=== PATIENT | male | born 1960 | race Caucasian/White ===

== ENCOUNTER 2016-10-07 21:47 | Emergency (ER) | payer OTHER ==
[2016-10-07 21:54] VITALS: RESP 16; TEMP 97.5
[2016-10-07] MEDS ORDERED: fentaNYL 100 MCG/2 ML INJ IVP ONE (22:27)
[2016-10-07] MEDS ORDERED: KETOROLAC 15 MG/1 ML SDV IVP ONE (22:37)
--- NOTE | 2016-10-07 22:42 | EDPHY ---
H & P Stated Complaint: felt a pop in bicep while pulling on heavy object HPI/ROS: HPI The patient presents with left-sided elbow pain which began at about 9 o'clock tonight when he was lifting pieces of wood into a truck. He felt a pop and immediate pain of his left elbow near the biceps tendon. This is been constant , getting progressively worse, and is severe. It is described as an achy pain. He cannot move his arm because the pain is so severe. He has no prior history of any injuries of the left arm.. REVIEW OF SYSTEMS Constitutional: No fever, no chills. Musculoskeletal: No back pain. Skin: No rashes. Neurological: No headache. PMHx: Hypothyroidism, depression PHYSICAL General Appearance: In obvious discomfort, clutching his elbow Eyes: Pupils equal and round no pallor or injection ENT, Mouth: Mucous membranes moist Respiratory: Breathing comfortably Neurological: A&O, moves all extremities Skin: Warm and dry, no rashes Musculoskeletal: Left elbow is held in flexion, there is tenderness overlying the distal head of the biceps tendon which appears retracted, he has limited flexion secondary to pain Extremities: symmetrical, full range of motion Psychiatric: Patient is oriented X 3, there is no agitation Source: Patient Exam Limitations: No limitations - Personal History Tetanus Vaccine Date: < 10 - Medical/Surgical History Hx Asthma: Yes Hx Chronic Respiratory Disease: No Hx Diabetes: No Hx Cardiac Disease: No Hx Renal Disease: No Hx Cirrhosis: No Hx Alcoholism: No Hx HIV/AIDS: No Hx Splenectomy or Spleen Trauma: No Other PMH: HYPOTHYROID, DEPRESSION, idosyncratic insomnia - Social History Smoking Status: Never smoked Constitutional: Initial Vital Signs Temperature (C) 36.4 C 10/07/16 21:52 Heart Rate 67 10/07/16 21:52 Respiratory Rate 16 10/07/16 21:52 Blood Pressure 155/102 H 10/07/16 21:52 O2 Sat (%) 97 10/07/16 21:52 O2 Delivery Mode Room Air O2 (L/minute) 2 Allergies/Adverse Reactions: codeine Allergy (Severe, Verified 04/27/12 04:56) ANAPHYLYAXIS hydrocodone [Hydrocodone] Allergy (Severe, Verified 04/27/12 04:56) Anaphylaxis oxycodone [Oxycodone] Allergy (Severe, Verified 02/19/13 04:56) Anaphylaxis Penicillins Allergy (Severe, Verified 04/27/12 04:56) ANALPHYLAXIS NUTS Allergy (Severe, Uncoded 04/27/12 04:56) ANALPHYLAXIS Home Medications: Medication Instructions Recorded Albuterol 10/08/14 Caffeine 10/08/14 Ipratropium [Atrovent Neb] 0.5 mg IH BID PRN #30 deyvial 10/08/14 Levothyroxine 10/08/14 Wellbutrin Sr 10/08/14 Adderall 10 MG (*) 10/07/16 Citalopram 10/07/16 morphINE IR [morphINE IR 15 mg (*)] 15 mg PO Q4H PRN #10 tab 10/08/16 Medical Decision Making - Diagnostics Imaging Results: Imaging Impressions Elbow X-Ray 10/07/16 22:28 Impression: Normal left elbow series. If indicated, consider MRI at some point for further characterization to evaluate for possible tendon rupture. MRI left humerus demonstrates biceps tendon rupture. Discussed with Dr. Ramirez of Radiology. Imaging: Discussed imaging studies w/ call or contact centre operator Radiologist Differential Diagnosis: This is a 56-year-old male who presents from home with left-sided elbow pain. Differential diagnosis includes biceps tendon rupture, radial head fracture, olecranon fracture. Because of the patient's severe pain, fentanyl and Toradol were administered immediately. This allowed for some improvement of the patient's symptoms. X- ray was performed and was unremarkable. Because of concern for complete distal biceps tendon rupture, plan for MRI. The patient was neurovascularly intact. This was done in the emergency room and did demonstrate a complete biceps tendon rupture. I discussed the case briefly with the orthopedist second miller Dr Keyes and he recommends immobilization and follow up in orthopedics. The patient will be discharged from the emergency room. - Data Points Medications Given: Discontinued Medications Fentanyl (Sublimaze) 100 mcg IVP EDNOW ONE Stop: 10/07/16 22:28 Last Admin: 10/07/16 22:39 Dose: 100 mcg Hydromorphone HCl (Dilaudid) 0.5 mg IVP EDNOW ONE Stop: 10/08/16 00:13 Last Admin: 10/08/16 00:17 Dose: 0.5 mg Ketorolac Tromethamine (Toradol) 15 mg IVP EDNOW ONE Stop: 10/07/16 22:38 Last Admin: 10/07/16 23:08 Dose: 15 mg Departure - Departure Disposition: Home, Routine, Self-Care Clinical Impression: Rupture of biceps tendon Qualifiers: Encounter type: initial encounter Laterality: left Qualified Code(s): S46.112A - Strain of muscle, fascia and tendon of long head of biceps, left arm, initial encounter Condition: Good Instructions: Tendon Rupture (ED) Additional Instructions: Please make sure to use ice, rest, elevation and the sling to help with pain. You should call the orthopedic doctor listed below to arrange for follow-up. You can take ibuprofen 400 mg and acetaminophen 1 g every 6 hours as needed for pain. If the pain is more severe than this, you can take the pain pill I have prescribed. Referrals: Agatha Oneill MD [Primary Care Provider] - As per Instructions Tayler Vivas MD [Medical Doctor] - As per Instructions Prescriptions: morphINE IR [morphINE IR 15 mg (*)] 15 mg PO Q4H PRN #10 tab PRN Reason: Pain, Breakthrough
[2016-10-08] MEDS ORDERED: HYDROmorphONE/DILAUDID 1 MG/ML SYR IVP ONE (00:12)
[2016-10-08 02:42] VITALS: BP 123/80; PULSE 63; O2SAT 94
== END 2016-10-08 03:23 | disposition home or self-care (01) ==
DX: S46.112A Strain of muscle, fascia and tendon of long head of biceps, left arm, initial encounter (principal); X50.0XXA Overexertion from strenuous movement or load, initial encounter; Y93.F2 Activity, caregiving, lifting
CPT/HCPCS: 96374; J1170; J1885; J3010